=== PATIENT | male | born 1940 | race Caucasian/White ===

== ENCOUNTER 2019-08-12 19:57 | Emergency (ER) | payer OTHER ==
[~2019-08-12] VITALS: Ht 170.2 cm; Wt 77.1 kg
[2019-08-12] MEDS ORDERED: NORVASC2.5 M1 PO (21:15)
[2019-08-12] MEDS ORDERED: PRAVASTATIN SOD10 MG PO (21:16)
== END 2019-08-12 23:52 | disposition home or self-care (01) ==
LOC: ER 19:57
DX: K40.90 Unilateral inguinal hernia, without obstruction or gangrene, not specified as recurrent (principal)